=== PATIENT | male | born 1985 | race Caucasian/White ===

== ENCOUNTER 2021-04-05 19:26 | Emergency (ER) | payer OTHER ==
[~2021-04-05] VITALS: Ht 182.9 cm; Wt 90.7 kg
[2021-04-05] MEDS ORDERED: HYDROCODON-ACE1 EAC7 PO (21:35)
[2021-04-05] MEDS ORDERED: ZOFRAN ODT4 MG PO (21:35)
[2021-04-05] MEDS ORDERED: MELOXICAM15 MG PO (21:35)
[2021-04-05 21:46] LABS: URINE BILIRUBIN NEGATIVE (Negative); URINE BLOOD NEGATIVE (Negative); URINE CLARITY CLEAR; URINE COLOR YELLOW; URINE GLUCOSE-RANDOM NEGATIVE (Negative); URINE KETONES NEGATIVE (Negative); URINE LEUKOCYTES-REFLEX NEGATIVE (Negative); URINE NITRITE-REFLEX NEGATIVE (Negative); URINE PROTEIN NEGATIVE (Negative); URINE UROBILINOGEN 0.2 E.U./dl (0.2-1.0)
[2021-04-05 22:26] VITALS: BP 116/70
== END 2021-04-05 22:27 | disposition home or self-care (01) ==
LOC: M.ERS 19:26
PROVIDERS: Personal Emergency Response Attendant
DX: S13.9XXA Sprain of joints and ligaments of unspecified parts of neck, initial encounter (principal); S06.0X9A Concussion with loss of consciousness of unspecified duration, initial encounter; V89.2XXA Person injured in unspecified motor-vehicle accident, traffic, initial encounter; Y93.89 Activity, other specified; Y92.89 Other specified places as the place of occurrence of the external cause; Y99.8 Other external cause status